=== PATIENT | female | born 1995 | race Two or more races ===

== ENCOUNTER 2017-03-21 16:34 | Emergency (ER) | payer OTHER ==
[2017-03-21 16:40] VITALS: BP 131/83
[2017-03-21] MEDS ORDERED: IBUPROFEN 800 MG TABLET PO STA (16:49)
--- NOTE | 2017-03-21 16:50 | ED Physician Documentation ---
PD HPI LOWER EXT INJURY - Stated complaint Stated Complaint: TOE INJ - Chief complaint Chief Complaint: Ext Problem - History obtained from History obtained from: Patient - History of Present Illness PD HPI LOW EXT INJURY LOCATION: Other (She stubbed her left small toe on a coffee table earlier today at a friend's house, it was sideways but now is back in line. She has no pain at rest but moderate pain with walking. No other injuries. No possibility of .) Review of Systems Cardiac: reports: Reviewed and negative Respiratory: reports: Reviewed and negative PD PAST MEDICAL HISTORY - Present Medications Home Medications: Ambulatory Orders Medication Instructions Recorded Confirmed No Known Home Medications [No 03/21/17 03/21/17 Known Home Medications] - Allergies Allergies/Adverse Reactions: Allergies Allergy/AdvReac Type Severity Reaction Status Date / Time No Known Drug Allergies Allergy Verified 03/21/17 16:40 PD ED PE NORMAL - Vitals Vital signs reviewed: Yes - General General: Alert and oriented X 3, No acute distress - Extremities Extremities: Other (Bruising and tenderness at the proximal part of the left small toe but MVI at the tip. No obvious deformity.) - Neuro Neuro: Alert and oriented X 3, Normal speech - Psych Psych: Normal mood, Normal affect Results - Vitals Vitals: Vital Signs - 24 hr 03/21/17 16:37 Temperature 36.7 C Heart Rate 91 Respiratory 16 Rate Blood Pressure 131/83 H O2 Saturation 99 Oxygen O2 Source Room air - Rads (name of study) L small toe Radiology: EMP read contemporaneously (Oblique fracture of the left proximal phalanx) Departure - Departure Disposition: 01 Home, Self Care Clinical Impression: Displaced fracture of proximal phalanx of left lesser toe(s), initial encounter for closed fracture Condition: Good Record reviewed to determine appropriate education?: Yes Instructions: ED Fx Toe Closed Comments: He can take ibuprofen as needed for pain. 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 Keep them elaina taped and wear the special shoe as discussed.
[2017-03-21] MEDS ORDERED: IBUPROFEN 800 MG TABLET PO ONE (16:57)
--- NOTE | 2017-03-21 17:56 | XRAY Preliminary Report ---
Exam: XR TOE(S) LT IMPRESSION: Minimally displaced fifth toe proximal phalangeal fracture. [facility] SITE ID: [id number]
--- NOTE | 2017-03-21 17:58 | XRAY Report ---
EXAM: LEFT CYST TOE RADIOGRAPHY EXAM DATE: 03/21/2017 05:22 PM. CLINICAL HISTORY: L small toe inj. COMPARISON: None. TECHNIQUE: 3 views. FINDINGS: Bones: Minimally displaced oblique fracture of the proximal to mid fifth proximal phalanx. No evidenc e of intra-articular involvement. Joints: Normal. No subluxations. Soft Tissues: 15 oh soft tissue swelling. IMPRESSION: Minimally displaced fifth toe proximal phalangeal fracture. [facility] Referring Provider Line: [phone] SITE ID: [id number]
== END 2017-03-21 18:00 | disposition home or self-care (01) ==
LOC: ED 16:34
DX: S92.512A Displaced fracture of proximal phalanx of left lesser toe(s), initial encounter for closed fracture (principal); W22.03XA Walked into furniture, initial encounter; Y92.009 Unspecified place in unspecified non-institutional (private) residence as the place of occurrence of the external cause
CPT/HCPCS: 73660; 99283; A9270